=== PATIENT | male | born 1950 | race Two or more races ===

== ENCOUNTER 2019-03-31 20:30 | Inpatient (IN) | payer OTHER, MEDICAID ==
[~2019-03-31] VITALS: Ht 167.6 cm; Wt 90.6 kg
[~2019-03-31 20:30] MED LIST: ALLO100T PO; ASPI-404 PO; ATEN100T PO; ATOR20TA50 PO; CALC0.25 PO; CALC667C PO; FERR-20 PO; FURO20TA3 PO; GABA-339 PO; HYDR50TA15 PO; ISOS10TA45 PO; LEVO50TA7 PO; LOSA-39 PO; PROP60CA34 PO
[2019-03-31 21:47] LABS: Basophils # (auto) 0.1 uL; Eosinophils # (auto) 0.3 uL; Eosinophils % (auto) 4.7 % (0.0-7.0); Lymphocytes # (auto) 1.9 uL; Monocytes # (auto) 0.7 uL; Monocytes % (auto) 9.5 % (0.0-12.0)
[2019-03-31 21:48] LABS: Basophils % (auto) 0.9 % (0.0-2.0); Hematocrit 35.2 % (41.0-53.0); Hemoglobin 12.1 g/dL (13.5-17.5); Lymphocytes % (auto) 26.6 % (10.0-50.0); Mean Corpuscular Hemoglobin 37.6 pg (28.0-32.0); Mean Corpuscular Hgb Conc. 34.4 g/dL (32.0-36.0); Mean Corpuscular Volume 109.3 fL (80.0-100.0); Neutrophils # (auto) 4.2 uL; Neutrophils % (auto) 58.3 % (37.0-80.0); Platelet Count (auto) 236 10^3/uL (140-450); Red Blood Cells 3.22 10^6/uL (4.5-5.90); Red Cell Distribution Width 15.8 % (11.8-14.3); White Blood Cell 7.2 10^3/uL (4.4-10.8)
[2019-03-31 21:59] LABS: Albumin 3.6 g/dL (3.4-5.0); Calcium 7.5 mg/dL (8.5-10.1); Magnesium 3.3 mg/dL (1.6-2.6)
[2019-03-31 22:03] LABS: BUN/Creatinine Ratio 4.9; Bilirubin, Total 0.6 mg/dL (0.2-1.0); Total Protein 7.6 g/dL (6.4-8.2)
[2019-03-31] MEDS ORDERED: SODIUM BICARBONATE 8.4% INJ 50ML SYRINGE ONE (22:40)
[2019-03-31] MEDS ORDERED: CALCIUM GLUC 4.65meq/50ml D5AE 50 ML IV ONE (22:41)
[2019-03-31] MEDS ORDERED: SODIUM ZIRCONIUM CYCL 10 GM PAK ONE (22:42)
[2019-03-31] MEDS ORDERED: IPRATROPIUM BROM 0.5 MG/2.5ML INH SOL NEB ONE (22:45)
[2019-03-31] MEDS ORDERED: SODIUM BICARBONATE 8.4 % INJ 50ML VIAL IV ONE (22:45)
[2019-03-31] MEDS ORDERED: ALBUTEROL SULF 2.5 MG/0.5ML(0.5%) NEB SOLN NEB ONE (22:45)
[2019-03-31] MEDS ORDERED: SODIUM ZIRCONIUM CYCL 10 GM PAK PO ONE (22:45)
[2019-03-31] MEDS ORDERED: InsuLIN REG 1unit/0.01ml Soln (100units/ml) IV ONE (22:45)
[2019-03-31] MEDS ORDERED: DEXTROSE (50%) 50ML SYRG IV ONE (22:45)
[2019-04-01] MEDS ORDERED: CALCIUM GLUC 4.65meq/50ml D5AE 50 ML IV ONE ×2 (00:15→08:00)
[2019-04-01] MEDS ORDERED: LORazepam 2MG/ML-1ML VIAL IV ONE (00:15)
[2019-04-01] MEDS ORDERED: ONDANSETRON HCL 4 MG/2 ML VIAL IV PRN (05:15)
[2019-04-01] MEDS ORDERED: ACETAMINOPHEN 325 MG TAB PO PRN (05:15)
[2019-04-01] MEDS ORDERED: DEXTROSE (50%) 50ML SYRG IV PRN ×2 (05:15→14:45)
[2019-04-01] MEDS ORDERED: NITROGLYCERIN 0.4 MG SL TAB SL PRN (05:30)
[2019-04-01] MEDS ORDERED: MORPHINE SULF INJ 2 MG/ML SYRINGE 1ML IV PRN (05:30)
[2019-04-01] MEDS: ACCU-CHEK COMFORT CURVE STRIP VI SCH ×4 (06:58→21:31)
[2019-04-01] MEDS: InsuLIN REG 1unit/0.01ml Soln (100units/ml) SC SCH ×4 (06:58→21:32)
[2019-04-01 07:42] LABS: Calcium 7.6 mg/dL (8.5-10.1)
[2019-04-01 07:44] LABS: BUN/Creatinine Ratio 4.8
[2019-04-01 07:47] LABS: Potassium 7.3 mmol/L (3.5-5.1)
[2019-04-01] MEDS ORDERED: SODIUM BICARBONATE 8.4% INJ 50ML SYRINGE IV ONE (08:00)
[2019-04-01] MEDS ORDERED: ALBUTEROL SULF 2.5 MG/0.5ML(0.5%) NEB SOLN NEB ONE (08:00)
[2019-04-01] MEDS ORDERED: SODIUM ZIRCONIUM CYCL 10 GM PAK PO ONE (08:00)
[2019-04-01] MEDS ORDERED: DEXTROSE (50%) 50ML SYRG IV ONE (08:00)
[2019-04-01] MEDS ORDERED: InsuLIN REG 1unit/0.01ml Soln (100units/ml) IV ONE (08:00)
[2019-04-01] MEDS: LEVOTHYROXINE SODIUM 50 MCG TAB PO SCH (08:32)
[2019-04-01] MEDS: CALCIUM ACETATE 667 MG CAP PO SCH ×3 (08:34→18:00)
[2019-04-01] MEDS: FERROUS SULFATE 325 MG TAB PO SCH ×2 (08:34→22:35)
[2019-04-01] MEDS ORDERED: SODIUM CHL 0.9% 1000 ML BAG XX ONE (10:00)
[2019-04-01] MEDS ORDERED: LOSARTAN POTASSIUM 50 MG TAB PO SCH ×2 (10:00)
[2019-04-01] MEDS: ISOSORBIDE MONONITRATE IR 20 MG TAB PO SCH ×2 (14:26→22:36)
[2019-04-01] MEDS: hydrALAZINE HCL 25 MG TAB PO SCH ×2 (14:26→22:35)
[2019-04-01] MEDS: PANTOPRAZOLE 40 MG TAB PO SCH (14:27)
[2019-04-01] MEDS: ALLOPURINOL 100 MG TAB PO SCH (14:28)
[2019-04-01 15:23] VITALS: BP 119/65
[2019-04-01] MEDS: cloNIDine HCL 0.1 MG TAB PO PRN (16:03)
--- NOTE | 2019-04-01 17:50 | NUR ---
Telemetry admit from ER BARBARA RINALDI admitted to Telemetry unit after SBAR received. Patient oriented to Michael archuleta RN, unit, room, bed, and unit policies regarding patient care and visiting hours. Patient now on continuous telemetry monitoring, tele box # 62 and telemetry reading on arrival to unit is sr 74. Patient placed on bedside weighed by bedscale and encouraged to call if they need something. All questions and concerns addressed, patient verbalized understanding. Admission assessment done and charted. Pt's visiting at bedside. Will continue to monitor pt.
--- NOTE | 2019-04-01 19:30 | NUR ---
pm open note pt resting in bed. no signs of distress. at bedside. bed in low position. call light with in reach. ansered all questions. will continue to monitor.
--- NOTE | 2019-04-01 20:50 | NUR ---
pt was shaking. checked pt blood sugars were 124. gave pt a blanket and adjusted the temp. will continue to monitor.
[2019-04-01 22:00] VITALS: BP 156/70
[2019-04-01] MEDS: ATORVASTATIN 20 MG TAB PO SCH (22:36)
[2019-04-02] MEDS: TEMAZEPAM 15 MG CAP PO PRN ×2 (00:41→21:50)
[2019-04-02] MEDS: METOPROLOL TARTRATE 25 MG TAB PO SCH ×3 (00:49→21:50)
[2019-04-02 05:57] VITALS: BP 144/67
[2019-04-02] MEDS: InsuLIN REG 1unit/0.01ml Soln (100units/ml) SC SCH ×4 (06:04→21:50)
[2019-04-02] MEDS: ACCU-CHEK COMFORT CURVE STRIP VI SCH ×4 (06:04→21:50)
[2019-04-02] MEDS: LEVOTHYROXINE SODIUM 50 MCG TAB PO SCH (06:04)
[2019-04-02 06:19] LABS: Hemoglobin 11.5 g/dL (13.5-17.5); Monocytes # (auto) 0.6 uL; Neutrophils # (auto) 3.7 uL; Platelet Count (auto) 212 10^3/uL (140-450); White Blood Cell 6.2 10^3/uL (4.4-10.8)
[2019-04-02 06:28] LABS: Basophils # (auto) 0 uL; Basophils % (auto) 0.6 % (0.0-2.0); Eosinophils # (auto) 0.3 uL; Eosinophils % (auto) 4.3 % (0.0-7.0); Hematocrit 33.7 % (41.0-53.0); Lymphocytes # (auto) 1.5 uL; Mean Corpuscular Hemoglobin 37.2 pg (28.0-32.0); Mean Corpuscular Volume 109.4 fL (80.0-100.0); Monocytes % (auto) 10.2 % (0.0-12.0); Neutrophils % (auto) 59.9 % (37.0-80.0); Red Blood Cells 3.08 10^6/uL (4.5-5.90); Red Cell Distribution Width 15.4 % (11.8-14.3)
[2019-04-02 06:41] LABS: Calcium 7.7 mg/dL (8.5-10.1); Potassium 5.3 mmol/L (3.5-5.1)
[2019-04-02 06:44] LABS: Albumin 3.2 g/dL (3.4-5.0); BUN/Creatinine Ratio 4.3; Magnesium 2.8 mg/dL (1.6-2.6)
--- NOTE | 2019-04-02 06:57 | NUR ---
critical lab called. critical 10.3 creatinine. trending down. endorsed to day shift.
--- NOTE | 2019-04-02 07:30 | NUR ---
tOpening Shift Note Assumed care of patient, awake and alert. No S/S of distress/SOB or pain. Insructed on POC and to call for assist PRN, will continue to monitor for changes Q1hr and PRN.
[2019-04-02 07:38] LABS: Bilirubin, Total 0.8 mg/dL (0.2-1.0); Total Protein 6.6 g/dL (6.4-8.2)
[2019-04-02] MEDS: CALCIUM ACETATE 667 MG CAP PO SCH ×3 (08:00→18:33)
[2019-04-02] MEDS: FERROUS SULFATE 325 MG TAB PO SCH ×2 (08:00→18:33)
--- NOTE | 2019-04-02 08:30 | NUR ---
PT AMBULATES IN THE ROOM AND HALLWAY WITH STEADY GAIT.
[2019-04-02] MEDS: ALLOPURINOL 100 MG TAB PO SCH (08:57)
[2019-04-02] MEDS: ISOSORBIDE MONONITRATE IR 20 MG TAB PO SCH ×2 (08:59→21:49)
[2019-04-02] MEDS: hydrALAZINE HCL 25 MG TAB PO SCH ×2 (08:59→21:49)
[2019-04-02] MEDS: PANTOPRAZOLE 40 MG TAB PO SCH (08:59)
[2019-04-02 09:00] VITALS: BP 154/71
--- NOTE | 2019-04-02 12:00 | NUR ---
FAMILY AT BEDSIDE. Patient awake and alert. No S/S of distress/SOB or pain. Will continue to monitor changes q1hr and PRN.
[2019-04-02 13:00] VITALS: BP 166/77
[2019-04-02 17:10] VITALS: BP 133/73
--- NOTE | 2019-04-02 19:22 | NUR ---
CLOSING REPORT GIVEN TO DESIREE ZARATE RN.
[2019-04-02] MEDS: ATORVASTATIN 20 MG TAB PO SCH (21:49)
[2019-04-02 22:00] VITALS: BP 178/81
[2019-04-03 05:00] VITALS: BP 147/54
[2019-04-03] MEDS: ACCU-CHEK COMFORT CURVE STRIP VI SCH ×4 (05:25→21:59)
[2019-04-03] MEDS: LEVOTHYROXINE SODIUM 50 MCG TAB PO SCH (05:25)
[2019-04-03] MEDS: InsuLIN REG 1unit/0.01ml Soln (100units/ml) SC SCH ×4 (05:26→21:59)
[2019-04-03 06:17] LABS: Calcium 7.7 mg/dL (8.5-10.1)
[2019-04-03 06:23] LABS: Potassium 6.3 mmol/L (3.5-5.1)
[2019-04-03 06:24] LABS: BUN/Creatinine Ratio 4.8
--- NOTE | 2019-04-03 06:30 | NUR ---
lab called. pt potassium is 6.3. dr aware. pt receiving dialysis this am. will endorse to day shift.
[2019-04-03] MEDS ORDERED: SODIUM CHL 0.9% 1000 ML BAG XX ONE (07:00)
--- NOTE | 2019-04-03 08:00 | NUR ---
Opening Note Assumed care of patient, he is A & O x 4, no s/s of distress, easily rousable from sleep. POC discussed. Patient is comfortable at this time, his only complaint is minor tremors in his whole body he has had for the past two days. Bed is in lowest locked position, call light within reach, will continue to monitor Q1h and PRN.
[2019-04-03] MEDS: FERROUS SULFATE 325 MG TAB PO SCH ×2 (08:39→18:10)
[2019-04-03] MEDS: CALCIUM ACETATE 667 MG CAP PO SCH ×3 (08:39→18:10)
[2019-04-03 09:00] VITALS: BP 194/83
--- NOTE | 2019-04-03 09:45 | NUR ---
Patient blood pressure elevated per [employer], This RN performed assessment and recheck. BP 193/79, HR 72. Will notify Dr. Menendez, patient is supposed to have dialysis today will see what doctor would prefer to do.
--- NOTE | 2019-04-03 09:49 | NUR ---
Spoke to Dr. Menendez regarding elevated BP Orders to give one dose of PRN Catapres and hold daily BP meds for dialysis. Orders received, read back and verified. Will medicate per orders.
[2019-04-03] MEDS: ISOSORBIDE MONONITRATE IR 20 MG TAB PO SCH ×2 (10:00→21:58)
[2019-04-03] MEDS: METOPROLOL TARTRATE 25 MG TAB PO SCH ×2 (10:00→21:59)
[2019-04-03] MEDS: PANTOPRAZOLE 40 MG TAB PO SCH (10:11)
[2019-04-03] MEDS: ALLOPURINOL 100 MG TAB PO SCH (10:11)
[2019-04-03] MEDS: cloNIDine HCL 0.1 MG TAB PO PRN ×2 (10:12→23:23)
[2019-04-03 11:15] VITALS: BP 177/74
--- NOTE | 2019-04-03 11:20 | NUR ---
Rechecked BP Following administration of Catapres, BP now 177/74, informed Dr. Menendez, no further orders at this time, patient is to have dialysis this afternoon.
--- NOTE | 2019-04-03 12:20 | NUR ---
Spoke Dr. Menendez regarding positive MRSA nares Orders received read back and verified. Will medicate per orders.
[2019-04-03 17:00] VITALS: BP 153/77
--- NOTE | 2019-04-03 18:20 | NUR ---
Dialysis complete Per corn cutter BP 157/62, HR 58, removed 3L of fluid. Take off dressing around 2200. Will continue to monitor Q1h and PRN. Patient tolerated well, no s/s of distress at this time. Patient sitting up eating dinner comfortably, at bedside.
--- NOTE | 2019-04-03 19:50 | NUR ---
Opening Shift Note Assumed care of patient, awake and alert. No S/S of distress/SOB or pain. Instructed on POC and to call for assist PRN. Bed in lowest locked position, call light within reach, side rails up x2, fall precautions in place. Will continue to monitor for changes Q1hr and PRN.
[2019-04-03] MEDS: MUPIROCIN 2% OINT 15gm or 22gm EACHNOSTRI SCH (21:58)
[2019-04-03] MEDS: hydrALAZINE HCL 25 MG TAB PO SCH (21:58)
[2019-04-03] MEDS: ATORVASTATIN 20 MG TAB PO SCH (21:59)
[2019-04-03 22:00] VITALS: BP 178/74
[2019-04-03] MEDS: TEMAZEPAM 15 MG CAP PO PRN (23:23)
[2019-04-04 04:58] LABS: BUN/Creatinine Ratio 4.1; Calcium 7.9 mg/dL (8.5-10.1); Potassium 4.7 mmol/L (3.5-5.1)
[2019-04-04 05:00] VITALS: BP 154/65
[2019-04-04] MEDS: LEVOTHYROXINE SODIUM 50 MCG TAB PO SCH (06:32)
[2019-04-04] MEDS: InsuLIN REG 1unit/0.01ml Soln (100units/ml) SC SCH ×2 (06:32→12:00)
[2019-04-04] MEDS: ACCU-CHEK COMFORT CURVE STRIP VI SCH ×2 (06:32→11:30)
[2019-04-04] MEDS ORDERED: SODIUM CHL 0.9% 1000 ML BAG XX ONE (07:00)
[2019-04-04 08:00] VITALS: BP 155/70
[2019-04-04] MEDS: FERROUS SULFATE 325 MG TAB PO SCH (08:00)
[2019-04-04] MEDS: CALCIUM ACETATE 667 MG CAP PO SCH ×2 (08:00→12:00)
[2019-04-04 09:00] VITALS: BP 162/70
[2019-04-04] MEDS: ISOSORBIDE MONONITRATE IR 20 MG TAB PO SCH (10:00)
[2019-04-04] MEDS: MUPIROCIN 2% OINT 15gm or 22gm EACHNOSTRI SCH (10:00)
[2019-04-04] MEDS: PANTOPRAZOLE 40 MG TAB PO SCH (10:00)
[2019-04-04] MEDS: ALLOPURINOL 100 MG TAB PO SCH (10:00)
[2019-04-04] MEDS: hydrALAZINE HCL 25 MG TAB PO SCH (10:00)
[2019-04-04] MEDS: METOPROLOL TARTRATE 25 MG TAB PO SCH (10:00)
[2019-04-04] MEDS ORDERED: MUPIROCIN 2% OINT 15gm or 22gm EACHNOSTRI ONE (10:55)
[2019-04-04] MEDS ORDERED: HYDR-4298 PO (10:59)
[2019-04-04] MEDS ORDERED: MUPI2OIN2 EX (11:03)
[2019-04-04] MEDS ORDERED: MUPIROCIN 2% OINT 15gm or 22gm EACHNOSTRI SCH (11:06)
[2019-04-04 12:01] VITALS: BP 162/70
--- NOTE | 2019-04-04 12:15 | NUR ---
DIALYSIS COMPLETED Total of 3L of fluid removed. BP- 132/62, HR- 57. Patient is comfortably sitting upin bed having lunch, will continue to monitor. Signed: 04/04/19 at [address] <Co-Signature Required> Co-Signed: 04/04/19 at 1353 by Irma Morrison RN
[2019-04-04 12:49] VITALS: BP 126/70
--- NOTE | 2019-04-04 13:13 | NUR ---
Opening Shift Note Assumed care of patient, awake and alert currently in bed. No S/S of distress/SOB or pain noted/reported. Patient instructed on POC and to call for assistance PRN, will continue to monitor for changes Q1hr and PRN. Signed: 04/04/19 at [address] <Co-Signature Required> Co-Signed: 04/04/19 at 1314 by Irma Morrison RN Addendum: 04/04/19 at 1354 by [address] TS OPENING NOTE CORRECT TIME 0745 Signed: 04/04/19 at [address] <Co-Signature Required> Co-Signed: 04/04/19 at 1354 by Irma Morrison RN
--- NOTE | 2019-04-04 14:24 | NUR ---
Discharge instructions given as ordered. Appointment information to follow up with PCP given to patient and , all questions and concerns addressed. Patient verbalized understanding. IV removed with catheter intact, pressure dressing applied. Telemetry unit returned to ICU. Patient taken to vehicle via wheelchair with all personal belongings, accompanied by staff and family member. No distress noted at time of departure. Signed: 04/04/19 at [address] SN <Co-Signature Required> Co-Signed: 04/04/19 at 1457 by Irma Morrison RN
--- NOTE | 2019-04-05 16:42 | NUR ---
Discharge planning per SS consult, patient has orders for home health. Referral sent to [facility], placed a follow up call, spoke with Dayana and was advised that they will accept this patient onto services. Referral sent to [facility] [phone], placed a follow up call, spoke with Aleida and was provided a fax number ([phone]) to the PCP Dr. Young for follow up and approval of home health services.
== END 2019-04-04 14:30 | disposition home or self-care (01) | DRG 640 ==
LOC: ER 20:32 → OVERFLOW 20:33 → TELE-WESTW 04-01 17:54
PROVIDERS: ADMIT Nurse Practitioner; ATTEND Internal Medicine
PROC: 5A1D70Z Performance of Urinary Filtration, Intermittent, Less than 6 Hours Per Day (ICD-10-PCS; principal; 2019-04-01)
PROC: 5A1D70Z Performance of Urinary Filtration, Intermittent, Less than 6 Hours Per Day (ICD-10-PCS; 2019-04-03)
PROC: 5A1D70Z Performance of Urinary Filtration, Intermittent, Less than 6 Hours Per Day (ICD-10-PCS; 2019-04-04)
DX: E87.5 Hyperkalemia (principal); N18.6 End stage renal disease; I13.2 Hypertensive heart and chronic kidney disease with heart failure and with stage 5 chronic kidney disease, or end stage renal disease; I16.0 Hypertensive urgency; D63.8 Anemia in other chronic diseases classified elsewhere; E66.9 Obesity, unspecified; E11.22 Type 2 diabetes mellitus with diabetic chronic kidney disease; E03.9 Hypothyroidism, unspecified; D75.89 Other specified diseases of blood and blood-forming organs; F32.9 Major depressive disorder, single episode, unspecified; E78.00 Pure hypercholesterolemia, unspecified; M62.838 Other muscle spasm; B95.62 Methicillin resistant Staphylococcus aureus infection as the cause of diseases classified elsewhere; E78.5 Hyperlipidemia, unspecified; Z82.49 Family history of ischemic heart disease and other diseases of the circulatory system; Z83.3 Family history of diabetes mellitus; Z79.899 Other long term (current) drug therapy; Z68.32 Body mass index [BMI] 32.0-32.9, adult
CPT/HCPCS: 36415; 70450; 71045; 80048; 80053; 82962; 83036; 83735; 83880; 84132; 84443; 85025; 87081; 90935; 93005; 94640; 94644; 96365; 96375; 96376; 97163; G0378; J0610; J1642; J1815

== ENCOUNTER 2022-02-22 18:22 | Emergency (ER) | payer OTHER, MEDICAID ==
[~2022-02-22] VITALS: Ht 175.3 cm; Wt 84.5 kg
[~2022-02-22 18:22] MED LIST changes: -ASPI-404 PO; +ASPI-543 PO; +HYDR-4298 PO; -HYDR50TA15 PO; -LOSA-39 PO; +MUPI2OIN2 EX
[2022-02-22] MEDS ORDERED: ceFAZolin 1GM/50ML 100 ML IV ONE (18:30)
[2022-02-22] MEDS ORDERED: HYDROmorphone HCL 2 MG/ML VL/or syr IV ONE ×2 (18:30→19:45)
[2022-02-22] MEDS ORDERED: ONDANSETRON HCL 4 MG/2 ML VIAL IV ONE ×3 (18:45→21:15)
[2022-02-22] MEDS ORDERED: TETANUS-DIPTH-ACEL PERTUSSIS 0.5ML SYR Tdap IM ONE (18:45)
[2022-02-22 20:21] LABS: Basophils # (auto) 0.1 10 ^3/uL (0-0.2); Eosinophils # (auto) 0.3 10 ^3/uL (0-0.8); Hemoglobin 12.2 g/dL (13.5-17.5); Lymphocytes # (auto) 1.6 10 ^3/uL (0.4-5.4); Lymphocytes % (auto) 13.5 % (10.0-50.0); Monocytes # (auto) 0.6 10 ^3/uL (0-1.3)
[2022-02-22 20:23] LABS: Basophils % (auto) 0.9 % (0.0-2.0); Eosinophils % (auto) 2.3 % (0.0-7.0); Hematocrit 36.2 % (41.0-53.0); Mean Corpuscular Hemoglobin 35.5 pg (28.0-32.0); Mean Corpuscular Hgb Conc. 33.8 g/dL (32.0-36.0); Mean Corpuscular Volume 105.1 fL (80.0-100.0); Monocytes % (auto) 5.2 % (0.0-12.0); Neutrophils # (auto) 9.4 10 ^3/uL (1.6-8.6); Neutrophils % (auto) 78.1 % (37.0-80.0); Red Blood Cells 3.45 10^6/uL (4.5-5.90); Red Cell Distribution Width 13.7 % (11.8-14.3)
[2022-02-22 20:49] LABS: Albumin 3.8 g/dL (3.4-5.0); BUN/Creatinine Ratio 4.2
[2022-02-22 20:51] LABS: Bilirubin, Total 0.5 mg/dL (0.2-1.0); Total Protein 6.8 g/dL (6.4-8.2)
[2022-02-22 20:56] LABS: Potassium 5.7 mmol/L (3.5-5.1)
[2022-02-22] MEDS ORDERED: diphenhdrAMINE HCL 50 MG/1 ML VL IV ONE (21:15)
[2022-02-22 21:30] VITALS: BP 209/96
== END 2022-02-22 22:49 | disposition left against medical advice (07) ==
LOC: EDBD 18:22 → ER 18:22
DX: S51.811A Laceration without foreign body of right forearm, initial encounter (principal); R94.31 Abnormal electrocardiogram [ECG] [EKG]; Z53.21 Procedure and treatment not carried out due to patient leaving prior to being seen by health care provider; W26.8XXA Contact with other sharp object(s), not elsewhere classified, initial encounter; Y93.89 Activity, other specified; Y92.89 Other specified places as the place of occurrence of the external cause; Y99.8 Other external cause status
CPT/HCPCS: 36415; 71045; 73120; 80053; 80320; 82962; 85025; 90715; 93005; J0690; J1170; J1200; J2405; 90471; 96365; 96375; 96376

== ENCOUNTER 2023-03-21 02:12 | Emergency (ER) | payer OTHER, MEDICAID ==
[~2023-03-21] VITALS: Ht 170.2 cm; Wt 85.0 kg
[~2023-03-21 02:12] MED LIST changes: -FERR-20 PO; +FERR325T24 PO; -ISOS10TA45 PO; +ISOS10TA5 PO
[2023-03-21] MEDS ORDERED: LABETALOL HCL 5 MG/ML 4ML SYRINGE IV ONE (03:45)
[2023-03-21] MEDS ORDERED: hydrALAZINE HCL 20 MG/ML VL IV ONE (03:45)
[2023-03-21 03:47] LABS: Basophils # (auto) 0.1 10 ^3/uL (0-0.2); Basophils % (auto) 0.7 % (0.0-2.0); Eosinophils # (auto) 0.5 10 ^3/uL (0-0.8); Hematocrit 38.5 % (41.0-53.0); Hemoglobin 12.8 g/dL (13.5-17.5); Lymphocytes # (auto) 4.7 10 ^3/uL (0.4-5.4); Mean Corpuscular Hemoglobin 34.3 pg (28.0-32.0); Mean Corpuscular Hgb Conc. 33.3 g/dL (32.0-36.0); Mean Corpuscular Volume 102.9 fL (80.0-100.0); Monocytes # (auto) 0.9 10 ^3/uL (0-1.3); Monocytes % (auto) 7.1 % (0.0-12.0); Neutrophils % (auto) 49.2 % (37.0-80.0); Red Blood Cells 3.74 10^6/uL (4.5-5.90); Red Cell Distribution Width 13.9 % (11.8-14.3); White Blood Cell 12.2 10^3/uL (4.4-10.8)
[2023-03-21 03:58] VITALS: PULSE 82; RESP 18; O2SAT 98
[2023-03-21 04:14] LABS: Alanine Aminotransferase 13 U/L (7-40); Albumin 4.8 g/dL (3.2-4.8); Alkaline Phosphatase 155 U/L (46-116); Anion Gap 13 (5-15); Aspartate Aminotransferase 13 U/L (13-40); BUN/Creatinine Ratio 3.7 (10.0-20.0); Bilirubin, Total 0.5 mg/dL (0.2-1.0); Blood Urea Nitrogen 31 mg/dL (9-23); Calcium 8.9 mg/dL (8.7-10.4); Carbon Dioxide 29 mmol/L (20-30); Chloride 92 mmol/L (98-107); Glucose 315 mg/dL (74-106); Potassium 3.7 mmol/L (3.5-5.1); Sodium 134 mmol/L (136-145); Total Protein 7.5 g/dL (5.7-8.2)
[2023-03-21] MEDS ORDERED: levETIRAcetam 1000 mg/100ml 100 ML IV ONE (04:15)
[2023-03-21] MEDS ORDERED: PROPOFOL 100 ML IV SCH ×2 (04:15→04:30)
[2023-03-21] MEDS ORDERED: ETOMIDATE (2MG/ML) 20ML VIAL IV ONE (04:15)
[2023-03-21] MEDS ORDERED: ENALAPRILAT 1.25 MG/ML-1ML VIAL IV ONE (04:15)
[2023-03-21] MEDS ORDERED: ROCURONIUM 10MG/ML 10ML VIAL IV ONE (04:15)
[2023-03-21] MEDS ORDERED: PROPOFOL 100 ML IV ONE (04:17)
[2023-03-21 04:22] LABS: Lactic Acid w/Reflex 2.3 mmol/L (0.4-2.0)
[2023-03-21] MEDS ORDERED: levETIRAcetam 500 MG/5ML INJ IV ONE (04:24)
[2023-03-21 04:55] VITALS: BP 186/90; PULSE 88; RESP 20; TEMP 98.1; O2SAT 100
[2023-03-21 04:55] LABS: Blood Alcohol < 3.0 mg/dL (<10)
[2023-03-21 04:56] LABS: Magnesium 2.4 mg/dL (1.6-2.6)
[2023-03-21 07:46] LABS: INR 0.97 (0.9-1.15); Partial Thromboplastin Time 25.8 SEC (24.5-34.5); Prothrombin Time 10.2 sec (9.3-11.8)
== END 2023-03-21 05:10 | disposition short-term general hospital (02) ==
LOC: EDBD 02:12 → ER 02:12
DX: I60.4 Nontraumatic subarachnoid hemorrhage from basilar artery (principal); I61.5 Nontraumatic intracerebral hemorrhage, intraventricular; G93.41 Metabolic encephalopathy; K46.9 Unspecified abdominal hernia without obstruction or gangrene; R51.9 Headache, unspecified; E11.65 Type 2 diabetes mellitus with hyperglycemia; D64.9 Anemia, unspecified; I13.2 Hypertensive heart and chronic kidney disease with heart failure and with stage 5 chronic kidney disease, or end stage renal disease; N18.6 End stage renal disease; I50.9 Heart failure, unspecified; Z98.890 Other specified postprocedural states
CPT/HCPCS: 31500; 36415; 36556; 36600; 70450; 71045; 80053; 80320; 82140; 82805; 83605; 83735; 83880; 84484; 85025; 85610; 85730; 87070; 87205; 93005; 96365; 96375; 99291; J0360; J1953; J2704; J3490; 94002